=== PATIENT | male | born 1970 | race Caucasian/White ===

== ENCOUNTER 2016-04-06 13:29 | Outpatient (RCR) | payer MEDICAID ==
[~2016-04-06 13:29] MED LIST: /ATOR40TA OR; ATARAX PO; BUDE300T PO; PAXI20TA OR; TRAZ150T OR
== END 2016-05-02 | disposition home or self-care (01) ==
LOC: M OUTALCOH 13:29
PROVIDERS: ATTEND Psychiatry & Neurology Psychiatry
DX: F10.20 Alcohol dependence, uncomplicated (principal); F14.20 Cocaine dependence, uncomplicated; F12.20 Cannabis dependence, uncomplicated; Z72.0 Tobacco use

== ENCOUNTER 2016-05-24 08:00 | Outpatient (RCR) | payer MEDICAID | END 2016-05-30 | LOC: M OUTALCOH 08:00 | PROVIDERS: ATTEND Psychiatry & Neurology Psychiatry | DX: F14.20 Cocaine dependence, uncomplicated (principal); F10.20 Alcohol dependence, uncomplicated; F12.20 Cannabis dependence, uncomplicated; Z72.0 Tobacco use ==

== ENCOUNTER 2016-06-15 14:00 | Outpatient (RCR) | payer MEDICAID | END 2016-06-30 | LOC: M OUTALCOH 14:00 | PROVIDERS: ATTEND Psychiatry & Neurology Psychiatry | DX: F14.20 Cocaine dependence, uncomplicated (principal); F10.20 Alcohol dependence, uncomplicated; F12.20 Cannabis dependence, uncomplicated; Z72.0 Tobacco use ==

== ENCOUNTER → 2017-10-04 | Outpatient (CLI) | payer SELFPAY, MEDICAID | LOC: M OUTALCOH 07:56 | DX: F11.20 Opioid dependence, uncomplicated (principal) ==

== ENCOUNTER → 2018-12-16 | Outpatient (CLI) | payer MEDICAID ==
[~2018-12-16] MED LIST changes: -/ATOR40TA OR; +LIPI1TAB2 OR
== END ==
LOC: M OUTALCOH 08:11
PROVIDERS: ATTEND Psychiatry & Neurology Psychiatry
DX: F11.10 Opioid abuse, uncomplicated (principal); F17.200 Nicotine dependence, unspecified, uncomplicated

== ENCOUNTER 2018-12-25 14:08 | Outpatient (RCR) | payer MEDICAID | END 2018-12-30 | LOC: M OUTALCOH 14:08 | PROVIDERS: ATTEND Psychiatry & Neurology Psychiatry | DX: F11.10 Opioid abuse, uncomplicated (principal); F17.200 Nicotine dependence, unspecified, uncomplicated ==

== ENCOUNTER → 2018-12-27 | Outpatient (REF) | payer MEDICAID ==
[2018-12-27 11:41] LABS: ALBUMIN 3.8 GM/DL (3.2-5.2); ALT/SGPT 27 U/L (12-78); BILIRUBIN,TOTAL 0.4 MG/DL (0.2-1.0); BLOOD UREA NITROGEN 8 MG/DL (7-18); CALCIUM LEVEL 8.6 MG/DL (8.5-10.1); CARBON DIOXIDE LEVEL 28 MEQ/L (21-32); CHLORIDE LEVEL 107 MEQ/L (98-107); CHOLESTEROL LEVEL 205 MG/DL (<200); CHOLESTEROL RISK RATIO 7.321 (<5); CREATININE FOR GFR 0.96 MG/DL (0.70-1.30); GLOMERULAR FILTRATION RATE > 60.0 (>56); GLUCOSE, FASTING 93 MG/DL (70-100); HDL CHOLESTEROL 28 MG/DL (>40); LDL CHOLESTEROL 108 MG/DL (<100); NON-HDL-C 177 MG/DL; POTASSIUM SERUM 4.1 MEQ/L (3.5-5.1); SODIUM LEVEL 142 MEQ/L (136-145); TOTAL PROTEIN 6.7 GM/DL (6.4-8.2); TRIGLYCERIDES LEVEL 344 MG/DL (<150)
== END ==
LOC: M LAB REF 10:11
PROVIDERS: ATTEND Family Medicine Addiction Medicine
DX: E78.49 Other hyperlipidemia (principal)

== ENCOUNTER 2019-01-29 10:14 | Outpatient (RCR) | payer MEDICAID | END 2019-01-30 | LOC: M OUTALCOH 10:14 | PROVIDERS: ATTEND Psychiatry & Neurology Psychiatry | DX: F17.200 Nicotine dependence, unspecified, uncomplicated (principal); F14.20 Cocaine dependence, uncomplicated; F10.20 Alcohol dependence, uncomplicated; F11.20 Opioid dependence, uncomplicated; F15.20 Other stimulant dependence, uncomplicated ==

== ENCOUNTER 2019-02-26 13:59 | Outpatient (RCR) | payer MEDICAID | END 2019-03-01 | LOC: M OUTALCOH 13:59 | PROVIDERS: ATTEND Psychiatry & Neurology Psychiatry | DX: F11.10 Opioid abuse, uncomplicated (principal); F17.200 Nicotine dependence, unspecified, uncomplicated ==

== ENCOUNTER 2019-03-28 08:45 | Outpatient (RCR) | payer MEDICAID | END 2019-04-01 | LOC: M OUTALCOH 08:45 | PROVIDERS: ATTEND Psychiatry & Neurology Psychiatry | DX: F11.10 Opioid abuse, uncomplicated (principal); F17.200 Nicotine dependence, unspecified, uncomplicated ==

== ENCOUNTER 2019-04-11 14:19 | Outpatient (RCR) | payer MEDICAID | END 2019-05-02 | LOC: M OUTALCOH 14:19 | PROVIDERS: ATTEND Psychiatry & Neurology Psychiatry | DX: F11.10 Opioid abuse, uncomplicated (principal); F17.200 Nicotine dependence, unspecified, uncomplicated ==

== ENCOUNTER 2019-05-29 14:45 | Inpatient (IN) | payer MEDICAID, OTHER ==
[~2019-05-29] VITALS: Ht 177.8 cm; Wt 72.4 kg
[~2019-05-29 14:45] MED LIST changes: +VITAMIN D 50,000 UNITS CAPSULE (ERGOCALCIFEROL 1.25MG) PO SCH
[2019-05-29] MEDS ORDERED: OLAN5TAB PO (15:02)
[2019-05-29] MEDS ORDERED: SUBO8MIS SL (15:02)
[2019-05-29] MEDS ORDERED: ATOR1TAB19 PO (15:02)
[2019-05-29] MEDS ORDERED: VITA1CAP25 (15:02)
[2019-05-29] MEDS ORDERED: DULO1CAP6 PO (15:02)
[2019-05-29] MEDS ORDERED: CLON-412 PO (15:02)
[2019-05-29] MEDS ORDERED: HYDR-3363 PO (15:02)
[2019-05-29] MEDS ORDERED: ONDANSETRON 4 MG ORAL DISINTEGRATING TAB (Q0162 PER 1MG) PO ONE (15:30)
[2019-05-29 15:43] LABS: HEMATOCRIT 40.1 % (42.0-52.0); HEMOGLOBIN 13.1 g/dl (13.5-17.5); MEAN CORPUSCULAR HEMOGLOBIN 29.1 pg (27.0-33.0); MEAN CORPUSCULAR HGB CONC 32.7 g/dl (32.0-36.5); MEAN CORPUSCULAR VOLUME 89.1 fl (80.0-96.0); PLATELET COUNT, AUTOMATED 223 10^3/uL (150-450); WHITE BLOOD COUNT 9.8 10^3/uL (4.0-10.0)
[2019-05-29 16:02] LABS: AMPHETAMINES LEVEL URINE POSITIVE (NEGATIVE); BARBITURATES URINE NEGATIVE (NEGATIVE); BENZODIAZEPINES URINE NEGATIVE (NEGATIVE); CANNABINOIDS URINE NEGATIVE (NEGATIVE); COCAINE METABOLITE URINE POSITIVE (NEGATIVE); METHADONE URINE NEGATIVE (NEGATIVE); OPIATES URINE NEGATIVE (NEGATIVE); PHENCYCLIDINE URINE NEGATIVE (NEGATIVE)
[2019-05-29 16:13] LABS: ACETAMINOPHEN LEVEL < 2.0 UG/ML (10.0-30.0); ALT/SGPT 26 U/L (12-78); BILIRUBIN,DIRECT 0.1 MG/DL (0.0-0.2); BILIRUBIN,TOTAL 0.3 MG/DL (0.2-1.0); BLOOD UREA NITROGEN 12 MG/DL (7-18); CALCIUM LEVEL 9.5 MG/DL (8.5-10.1); CARBON DIOXIDE LEVEL 29 MEQ/L (21-32); CHLORIDE LEVEL 106 MEQ/L (98-107); CREATININE FOR GFR 0.89 MG/DL (0.70-1.30); ETHYL ALCOHOL (ETHANOL) < 0.003 % (0.000-0.010); GLOMERULAR FILTRATION RATE > 60.0 (>56); GLUCOSE, FASTING 91 MG/DL (70-100); POTASSIUM SERUM 3.7 MEQ/L (3.5-5.1); SALICYLATE LEVEL < 1.7 MG/DL (5.0-30.0); SODIUM LEVEL 139 MEQ/L (136-145)
[2019-05-29] MEDS ORDERED: hydrOXYzine 25 MG TAB PO ONE (22:00)
[2019-05-29] MEDS ORDERED: OLANZapine 5 MG TAB PO ONE (22:00)
[2019-05-29] MEDS ORDERED: ATORVASTATIN 20 MG TAB PO ONE (22:00)
--- NOTE | 2019-05-29 23:25 | ECGEPIP ---
[facility] - ED Test Date: 2019-05-29 Pat Name: NAYA HSIEH Department: Room: - Gender: Male Rn Pool: LINH : [id number] Requested By: GREG Jackson Order Number: [id number] Reading MD: Greg Alvarez Measurements Intervals [place] Rate: 67 P: 57 CT: 162 QRS: 34 QRSD: 101 T: 44 QT: 382 QTc: 404 Interpretive Statements SINUS RHYTHM Comparison tracing not on file Electronically Signed on 05-29-2019 23:25:17 EST by Greg Alvarez
[2019-05-30] MEDS ORDERED: cloNIDine 0.1 MG TAB PO ONE (10:45)
[2019-05-30] MEDS ORDERED: DULoxetine 30 MG CAP (CYMBALTA) PO ONE (10:45)
[2019-05-30] MEDS: BUPRENORPHINE/NALOXONE 8-2MG SUBLINGUAL TABLET(SUBOXONE) SL SCH (11:49)
[2019-05-30] MEDS ORDERED: VITA50005 PO (14:28)
[2019-05-30] MEDS ORDERED: MOM 30ML SUSPENSION UDC PO PRN (15:45)
[2019-05-30] MEDS ORDERED: MAALOX 30 ML SUSP *UDC PO PRN (15:45)
[2019-05-30] MEDS ORDERED: traZODone 50 MG TAB PO PRN (15:45)
[2019-05-30 17:17] VITALS: BP 97/62
[2019-05-30] MEDS: OLANZapine 5 MG TAB PO SCH (20:06)
[2019-05-30] MEDS: ATORVASTATIN 10 MG TAB PO SCH (20:06)
[2019-05-30] MEDS: ACETAMINOPHEN TAB 650MG DOSE (2X325MG) PO PRN (20:07)
[2019-05-30] MEDS: hydrOXYzine 25 MG TAB PO SCH (20:07)
[2019-05-31 06:44] VITALS: BP 104/70
[2019-05-31] MEDS: BUPRENORPHINE/NALOXONE 8-2MG SUBLINGUAL TABLET(SUBOXONE) SL SCH (10:45)
[2019-05-31] MEDS: DULoxetine 30 MG CAP (CYMBALTA) PO SCH (10:45)
[2019-05-31] MEDS: cloNIDine 0.1 MG TAB PO SCH (10:50)
[2019-05-31 10:59] VITALS: BP 112/72
[2019-05-31] MEDS: NICOTINE 21MG/24HR 1 EA TRANSDERMAL TD SCH (13:02)
[2019-05-31] MEDS ORDERED: MIRALAX *UNIT DOSE* 17GM PACKET PO PRN (15:15)
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
[2019-05-31 16:19] VITALS: BP 103/61
[2019-05-31] MEDS: ATORVASTATIN 10 MG TAB PO SCH (20:49)
[2019-05-31] MEDS: OLANZapine 5 MG TAB PO SCH (20:49)
[2019-05-31] MEDS: hydrOXYzine 25 MG TAB PO SCH (20:49)
[2019-06-01 06:52] VITALS: BP 110/70
[2019-06-01] MEDS: DULoxetine 30 MG CAP (CYMBALTA) PO SCH (10:03)
[2019-06-01] MEDS: NICOTINE 21MG/24HR 1 EA TRANSDERMAL TD SCH (10:03)
[2019-06-01] MEDS: BUPRENORPHINE/NALOXONE 8-2MG SUBLINGUAL TABLET(SUBOXONE) SL SCH (10:03)
[2019-06-01] MEDS: cloNIDine 0.1 MG TAB PO SCH (10:08)
[2019-06-01 16:13] VITALS: BP 119/67
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
[2019-06-01] MEDS: hydrOXYzine 25 MG TAB PO SCH (21:34)
[2019-06-01] MEDS: OLANZapine 5 MG TAB PO SCH (21:34)
[2019-06-01] MEDS: ATORVASTATIN 10 MG TAB PO SCH (21:34)
[2019-06-02 06:31] VITALS: BP 124/77
[2019-06-02 09:00] VITALS: BP 124/77
[2019-06-02] MEDS: cloNIDine 0.1 MG TAB PO SCH (09:00)
[2019-06-02] MEDS: DULoxetine 30 MG CAP (CYMBALTA) PO SCH (09:13)
[2019-06-02] MEDS: BUPRENORPHINE/NALOXONE 8-2MG SUBLINGUAL TABLET(SUBOXONE) SL SCH (09:13)
[2019-06-02] MEDS: NICOTINE 21MG/24HR 1 EA TRANSDERMAL TD SCH (09:13)
[2019-06-02] MEDS ORDERED: BUPRENORPHINE/NALOXONE 8-2MG SUBLINGUAL TABLET(SUBOXONE) SL ONE (10:15)
--- NOTE | 2019-06-02 10:29 | MHIPNPDOC ---
[facility] Progress Note Progress Note Inpatient Progress Note Bladimir Rios MRN: N/A Date of : N/A Date of Service: 06/02/2019 History of Present Illness The patient, a 48-year-old man with significant substance use, presents after becoming intoxicated and reportedly having depressive symptoms. Interval History Narrative: The patient is met with, he reports doing well and feeling much improved. Affective: Denies symptoms at this time. Psychotic: Denies symptoms at this time. Anxiety: Denies symptoms at this time. Eating and sleeping behaviors: Normal. Group Attendance: Frequent. Medication Side effects: See ROS below Behavioral problems/significant events overnight: None reported. Staff Report: Patient friendly and amenable. Review Of Systems General: Denies fever or appetite changes Cardiovascular: Denies Chest pain or palpations GI: Reports chronic constipation, denies nausea, vomiting. Respiratory: Denies shortness of breath or cough Neuro: Denies dizziness, tremors Derm: Denies any rashes or pruritus : Denies any dysuria or urinary problems MSK: Denies any muscle tightness or stiffness HEENT: Denies any vision changes or headaches Psychotherapy None on this visit. Vital Signs Reviewed. Mental Status Examination General: Well dressed with good hygiene Speech: Spontaneous and fluid Thought processes: Linear and logical MSK: Smooth and coordinated gait, no signs of tremors or involuntary orofacial movements Thought content: Future orientated Abstract reasoning, and computation: Intact Description of associations: Intact Description of abnormal or psychotic thoughts: Denies any suicidal or homicidal ideation. Denies any auditory or visual hallucinations. Does not appear to be responding to internal stimuli. Does not appear to be endorsing any bizarre or paranoid ideation. Judgment: fair Insight: fair Orientation: Alert and orientated 3 Cognition: Grossly normal Recent and remote memory: Intact Attention span and concentration: Intact Fund of knowledge: Adequate Mood: "okay" Affect: Euthymic with a full range Diagnoses Unspecified depressive disorder. Polysubstance use disorder. Assessment and Plan Unspecified depressive disorder: Continue medications as below. Polysubstance use disorder: Continue buprenorphine, we'll treat constipation with senna. Discussed with patient about different treatment options. Disposition Potential discharge tomorrow if covering provider feels it is appropriate. Time Spent 15 minutes Sunday Vital Signs Vital Signs Date Time Temp Pulse Resp B/P (MAP) Pulse Ox O2 Delivery O2 Flow Rate FiO2 06/02/19 09:00 124/77 06/02/19 06:31 97.5 73 14 05/30/19 17:17 98 05/30/19 11:44 Room Air Current Medications Current Medications Medications (Trade) Dose Ordered Sig/Levon Route PRN Reason Start Time Stop Time Status Last Admin Dose Admin Acetaminophen (Tylenol Tab) 650 mg Q6HP PRN PO HEADACHE or DISCOMFORT 05/30/19 15:45 05/30/19 20:07 Al Hydrox/Mg Hydrox/Simethicone (Mylanta) 30 ml Q4HP PRN PO HEARTBURN/INDIGESTION 05/30/19 15:45 Atorvastatin Calcium (Lipitor) 10 mg QHS PO 05/30/19 21:00 06/01/19 21:34 Buprenorphine/ Naloxone (Suboxone 8/2mg) 1 tab DAILY SL 05/30/19 09:00 06/02/19 10:12 DC 06/02/19 09:13 Buprenorphine/ Naloxone (Suboxone 8/2mg) 2 tab DAILY SL 06/03/19 09:00 Clonidine HCl (Catapres) 0.1 mg DAILY PO 05/31/19 09:00 Duloxetine HCl (Cymbalta) 60 mg DAILY PO 05/31/19 09:00 06/02/19 09:13 Home Med (Med Rec Complete!) ASDIRECTED XX 05/30/19 14:30 05/30/19 14:34 DC Hydroxyzine HCl (Atarax) 25 mg QHS PO 05/30/19 21:00 06/01/19 21:34 Magnesium Hydroxide (Milk Of Magnesia) 30 ml DAILYPRN PRN PO CONSTIPATION 05/30/19 15:45 Nicotine (Nicoderm Cq 21mg) 1 patch DAILY TD 05/31/19 09:00 06/02/19 09:13 Olanzapine (ZyPREXA) 5 mg QHS PO 05/30/19 21:00 06/01/19 21:34 Polyethylene Glycol (Miralax) 1 pkt DAILYPRN PRN PO CONSTIPATION 05/31/19 15:15 06/01/19 10:21 Trazodone HCl (Desyrel) 50 mg QHSP PRN PO INSOMNIA 05/30/19 15:45 Vitamin D (Drisdol) 50,000 units Th@0900 PO 05/29/19 09:00 05/30/19 20:06 Allergies Coded Allergies: No Known Allergies (Unverified , 05/29/19) SABINO LAMBERT 2, 2020 10:29
--- NOTE | 2019-06-02 13:09 | MHIPN ---
DATE: 06/01/2019 VITAL SIGNS: Blood pressure 110/70. Pulse 90. Temperature 98.2. CHIEF COMPLAINT: Says feels okay. SUBJECTIVE: Seen for followup. Indicates feels okay, a bit better. Says had fairly good sleep. Appetite has been okay. Occasional cravings. MENTAL STATUS EXAMINATION: Neat. Cooperative. No agitation. No psychomotor retardation. He is coherent. Affect reactive, a bit more broader than yesterday. He denies any active suicidal thoughts or intents. No homicidal ideas or intents. Currently no evidence of any psychosis. Cognition grossly intact. Judgment and insight fair. ASSESSMENT: Other specified depressive disorder. PLAN: He is to continue with current care, he is to be encouraged to participate in activities in the unit. Would suggest obtaining collateral information as best as possible. He will be seeing the assigned psychiatrist tomorrow. Further recommendations will be made.
[2019-06-02] MEDS ORDERED: SENOKOT S TAB PO PRN (14:00)
[2019-06-02 16:24] VITALS: BP 124/74
[2019-06-02] MEDS: ACETAMINOPHEN TAB 650MG DOSE (2X325MG) PO PRN (20:13)
[2019-06-02] MEDS: ATORVASTATIN 10 MG TAB PO SCH (20:14)
[2019-06-02] MEDS: OLANZapine 5 MG TAB PO SCH (20:14)
[2019-06-02] MEDS: hydrOXYzine 25 MG TAB PO SCH (20:14)
[2019-06-03 06:39] VITALS: BP 124/73
[2019-06-03] MEDS: cloNIDine 0.1 MG TAB PO SCH (09:00)
[2019-06-03] MEDS ORDERED: BUPRENORPHINE/NALOXONE 8-2MG SUBLINGUAL TABLET(SUBOXONE) SL SCH (09:00)
[2019-06-03] MEDS: NICOTINE 21MG/24HR 1 EA TRANSDERMAL TD SCH (09:00)
[2019-06-03] MEDS: DULoxetine 30 MG CAP (CYMBALTA) PO SCH (09:35)
[2019-06-03] MEDS ORDERED: TRAZ-252 PO (11:07)
--- NOTE | 2019-06-03 16:52 | MHDSPDOC ---
[facility] Discharge Summary Discharge Summary DATE OF ADMISSION: May 30, 2019 at 15:42 DATE OF DISCHARGE: Jun 03, 2019 at 11:51 DISCHARGE DIAGNOSES: 1. Other specified depressive disorder. 2. Opiate use disorder, by history. 3. Consider cocaine use disorder. 4. History of legal difficulties. 5. Being on "the registry." 6. Son wishes to cut contact with the patient. REASON FOR ADMISSION: As pervious notes: " Patient is a 48-year-old male with a past medical history of depression and DLP, who presented to the emergency room after having an argument with his son. Patient reported that he was at the doctors office and broke down into tears. Patient was admitted to the psychiatry service and admitted to the inpatient mental health unit. Hospital service was called on consultation for medical screening evaluation. Currently patient denies any headache, nausea, vomiting, chest pain, palpitations. . He does report some shortness of breath and cough. However, he notes that this is a baseline given his extensive smoking history. He denies any abdominal pain, diarrhea, or urinary discomfort. Patient reports that he is chronically constipated and takes bowel regimen at home. Patient denies any fev ers or chills at home. CONSULTANTS INVOLVED: None TREATMENT AND PROGRESS ON THE UNIT : the patient was admitted for depression, but he had a good response to medications and has not experienced side effects from them. He is not suicidal, not homicidal at this time, he is future orientated and wants to be discharged, he thinks he is safe to go home. he has a PO but he knows he won't be violated, this gives him peace of mind. he says he has been sleeping well, eating well, denies SI/HI/thought delusions, denies TAV hallucinations. HOSPITAL COURSE: As above DISCHARGE ASSESSMENT: patient was seen in treatment team and at that time he was not suicidal, not homicidal, not psychotic, not responding to internal stimuli, had no self harm ideas, was future orientated, his insight and judgment had improved and said he was going to f/u with his OP providers. He was safe at that time to be discharged home. MENTAL STATUS EXAMINATION ON DISCHARGE: Patient is a 48-year old male, who is alert, cooperative, pleasant, with good hygiene and grooming. Speech is normal in r/t/v, spontaneous and fluent. Language skills are intact. Thought processes including: linear and coherent. Thought content: future orientated, denies SI/HI/thought delusions, denies TAV hallucinations. Description of associations: intact Description of abnormal or psychotic thoughts: denies thought delusions, TAv hallucinations, denies Si/HI, not responding to internal stimuli. Judgment: Improved. Insight: Improved. Orientation to x 3. Recent and remote memory: intact. Attention span and concentration: intact. Language: adequate. Fund of knowledge: average. Mood: euthymic. Affect: congruent with mood, full, appropriate, reactive. MEDICATIONS ON DISCHARGE: Scheduled Atorvastatin Calcium (Atorvastatin Calcium) 10 Mg Tablet, 10 MG PO QHS, (Reported) Buprenorphine HCl/Naloxone HCl (Suboxone 8 mg-2 mg Sl Film) 1 Each Film, 1 STRIP SL BID, (Reported) Clonidine HCl (Clonidine HCl) 0.1 Mg Tablet, 0.1 MG PO DAILY, (Reported) Duloxetine Hcl (Duloxetine HCl) 60 Mg Capsule.dr, 60 MG PO DAILY, (Reported) Ergocalciferol (Vitamin D2) (Vitamin D2) 50,000 Units Cap, 50,000 UNIT PO 1XWK, (Reported) THURSDAYS Hydroxyzine HCl (Hydroxyzine HCl) 25 Mg Tablet, 25 MG PO QHS, (Reported) Olanzapine (Olanzapine) 5 Mg Tablet, 5 MG PO QHS, (Reported) Scheduled PRN Trazodone HCl (Trazodone HCl) 50 Mg Tablet, 50 MG PO QHSP PRN for INSOMNIA, #30 PLAN/FOLLOWUP ARRANGEMENTS: Follow Up Care Education Label * Mental Health Appt 1 * Mental Health [facility] * Established With This Provider Yes * Therapist CAROLYN * Date Jun 04, 2019 * Time 08:00 * Address of Clinic or Practice [address] [place] [address] * * Additional information IF UNABLE TO MAKE THIS APPOINTMENT PLEASE CALL TO RESCHEDULE OR CANCEL Follow Up Care Education Label * Medical * Medical Follow Up [facility] - DR CARVAJAL * Established With This Provider Yes * Date Jun 17, 2019 * Time 14:00 * Address of Clinic or Practice [address] [place] [address] * * Additional information IF UNABLE TO MAKE THIS APPOINTMENT PLEASE CALL TO RESCHEDULE OR CANCEL Follow Up Care Education Label * Chemical Dependency Appt1 * Chemical Dependency [facility] * Address of Clinic or Practice [address] [place] [address] * * Additional information Walk in hours are from Sunday through Sunday from 8am to 4pm Follow Up Care Education Label * Chemical Dependency Appt2 * Chemical Dependency [facility] * Address of Clinic or Practice [address] [place] [address] * * Additional information Walk in hours are Sunday through Sunday from 730am-1230pm. The amount of time spent in the coordination of care for this patient was approximately 30 minutes. Vital Signs/I&Os Vital Signs Date Time Temp Pulse Resp B/P (MAP) Pulse Ox O2 Delivery O2 Flow Rate FiO2 06/03/19 06:39 97.6 74 12 124/73 (90) Room Air 05/30/19 17:17 98 Medications Scheduled Atorvastatin Calcium (Atorvastatin Calcium) 10 Mg Tablet, 10 MG PO QHS, (Repo rted) Buprenorphine HCl/Naloxone HCl (Suboxone 8 mg-2 mg Sl Film) 1 Each Film, 1 STRIP SL BID, (Reported) Clonidine HCl (Clonidine HCl) 0.1 Mg Tablet, 0.1 MG PO DAILY, (Reported) Duloxetine Hcl (Duloxetine HCl) 60 Mg Capsule.dr, 60 MG PO DAILY, (Reported) Ergocalciferol (Vitamin D2) (Vitamin D2) 50,000 Units Cap, 50,000 UNIT PO 1XWK, (Reported) THURSDAYS Hydroxyzine HCl (Hydroxyzine HCl) 25 Mg Tablet, 25 MG PO QHS, (Reported) Olanzapine (Olanzapine) 5 Mg Tablet, 5 MG PO QHS, (Reported) Scheduled PRN Trazodone HCl (Trazodone HCl) 50 Mg Tablet, 50 MG PO QHSP PRN for INSOMNIA, #30 Allergies Coded Allergies: No Known Allergies (Unverified , 05/29/19) JOJO HERNANDES MD Jun 03, 2019 16:43
== END 2019-06-03 11:51 | disposition home or self-care (01) | DRG 753 ==
LOC: M ED 14:45 → M ED INP 05-30 15:42 → M PSY 05-30 17:00
PROVIDERS: ADMIT Psychiatry & Neurology Addiction Medicine; ATTEND Psychiatry & Neurology Psychiatry
DX: F32.89 Other specified depressive episodes (principal); F11.10 Opioid abuse, uncomplicated; F17.200 Nicotine dependence, unspecified, uncomplicated; K59.00 Constipation, unspecified; D64.9 Anemia, unspecified; E78.5 Hyperlipidemia, unspecified; Z79.899 Other long term (current) drug therapy; Z65.2 Problems related to release from prison; Z63.9 Problem related to primary support group, unspecified